=== PATIENT | male | born 1980 | race Caucasian/White ===

== ENCOUNTER 2016-03-03 11:30 | Emergency (ER) | payer OTHER ==
[~2016-03-03] VITALS: Ht 172.7 cm; Wt 97.5 kg
[~2016-03-03 11:30] MED LIST: CARISOPRODOL 3350 MG PO; CELEXA20 MG PO; CYCLOBENZAPRINE5 MG PO; FLEXERIL PO; HYDROCODONE-AP1 EAC6 PO; IBUPROFEN 600600 M1 PO; IBUPROFEN 800800 M1 PO; IBUPROFEN 800800 MG PO; IBUPROFEN200 M2 PO; MEDROL DOSPAK21 TAB PO; NOHOMEMEDICATIONS; NORCO 5-325 TA1 EACH PO; NORFLEX100 MG PO; PERCOCET 5-3251 EACH PO; PREDNISONE 10 M10 MG PO; PREDNISONE 20 M20 M1 PO; PREDNISONE 20 M20 MG PO; PREDNISONE50 MG PO; TORADOL 10 MG T10 MG PO; TRAMADOL 50 MG50 MG PO; ULTRAM 50MG TAB50 MG PO; VALIUM2 MG PO; VALIUM5 MG PO
[2016-03-03] MEDS ORDERED: FLEXERIL PO (12:57)
[2016-03-03] MEDS ORDERED: MOBIC15 MG PO (12:57)
[2016-03-03] MEDS ORDERED: MEDROLDOSEPACK PO (12:57)
[2016-03-03 13:04] VITALS: BP 139/67
== END 2016-03-03 13:06 | disposition home or self-care (01) ==
LOC: ER 11:30
DX: M54.12 Radiculopathy, cervical region (principal); M25.512 Pain in left shoulder; G89.29 Other chronic pain; F17.210 Nicotine dependence, cigarettes, uncomplicated

== ENCOUNTER 2016-09-10 08:19 | Emergency (ER) | payer OTHER ==
[~2016-09-10] VITALS: Ht 172.7 cm; Wt 97.5 kg
[~2016-09-10 08:19] MED LIST changes: +MEDROLDOSEPACK PO; +MOBIC15 MG PO
[2016-09-10] MEDS ORDERED: NORCO 5-325 TA1 EACH PO (08:31)
[2016-09-10] MEDS ORDERED: PREDNISONE 20 M20 MG PO (08:31)
[2016-09-10 09:29] VITALS: BP 108/79
== END 2016-09-10 08:31 | disposition home or self-care (01) ==
LOC: ER 08:19
DX: M54.12 Radiculopathy, cervical region (principal); F17.210 Nicotine dependence, cigarettes, uncomplicated; F10.99 Alcohol use, unspecified with unspecified alcohol-induced disorder

== ENCOUNTER 2016-10-21 12:17 | Emergency (ER) | payer OTHER ==
[~2016-10-21] VITALS: Ht 172.7 cm; Wt 97.5 kg
[2016-10-21] MEDS ORDERED: NORCO 5-325 TA1 EACH PO (14:12)
[2016-10-21] MEDS ORDERED: NAPROSYN500 MG PO (14:12)
[2016-10-21 14:20] VITALS: BP 118/55
== END 2016-10-21 14:42 | disposition home or self-care (01) ==
LOC: ER 12:17
DX: G89.29 Other chronic pain (principal); F17.210 Nicotine dependence, cigarettes, uncomplicated; F10.99 Alcohol use, unspecified with unspecified alcohol-induced disorder; W20.8XXA Other cause of strike by thrown, projected or falling object, initial encounter; Y93.89 Activity, other specified; Y92.89 Other specified places as the place of occurrence of the external cause; Y99.0 Civilian activity done for income or pay

== ENCOUNTER 2017-07-08 08:10 | Emergency (ER) | payer OTHER ==
[~2017-07-08] VITALS: Ht 172.7 cm; Wt 97.5 kg
[~2017-07-08 08:10] MED LIST changes: +NAPROSYN500 MG PO
[2017-07-08 09:21] LABS: CALCIUM 9.5 mg/dL (8.5-10.1); POTASSIUM 4.4 mmol/L (3.5-5.1)
[2017-07-08] MEDS ORDERED: NAPROSYN500 MG PO (10:07)
[2017-07-08] MEDS ORDERED: NORCO 5-325 TA1 EACH PO (10:07)
[2017-07-08] MEDS ORDERED: VALIUM5 MG PO (10:07)
[2017-07-08] MEDS ORDERED: SENNA-DOCUSATE1 EACH PO (10:07)
[2017-07-08 10:49] VITALS: BP 118/86
== END 2017-07-08 10:50 | disposition home or self-care (01) ==
LOC: ER 08:10
PROVIDERS: Emergency Medicine
DX: S56.811A Strain of other muscles, fascia and tendons at forearm level, right arm, initial encounter (principal); M54.2 Cervicalgia; G89.29 Other chronic pain; F17.210 Nicotine dependence, cigarettes, uncomplicated; X50.0XXA Overexertion from strenuous movement or load, initial encounter; Y93.89 Activity, other specified; Y92.89 Other specified places as the place of occurrence of the external cause; Y99.8 Other external cause status

== ENCOUNTER 2018-06-09 08:17 | Emergency (ER) | payer OTHER ==
[~2018-06-09] VITALS: Ht 172.7 cm; Wt 95.3 kg
[~2018-06-09 08:17] MED LIST changes: +SENNA-DOCUSATE1 EACH PO
[2018-06-09 09:00] LABS: ABSOLUTE NEUTROPHILS 3.4 thou/uL (1.4-8.2); BASOPHILS 0.6 % (0.0-2.0); EOSINOPHILS 4.8 % (0.0-3.0); HEMATOCRIT 48.2 % (42.0-52.0); HEMOGLOBIN 16.9 gm/dL (14.0-18.0); LYMPHOCYTES 32.4 % (24.0-44.0); MCH 29.1 pg (26.0-34.0); MCHC 35.1 g/dL (28.0-37.0); MCV 82.9 fL (80.0-100.0); MONOCYTES 10.1 % (1.0-8.0); PLATELET COUNT 280 thou/uL (150-400); POLYS 52.1 % (36.0-66.0); RBC 5.81 mil/uL (4.50-6.00); RDW 13.7 % (10.5-14.5); WBC 6.5 thou/uL (4.0-11.0)
[2018-06-09 09:17] LABS: ANION GAP 12 mmol/L (7-16); BUN 19 mg/dL (7-18); CALCIUM 9.7 mg/dL (8.5-10.1); CHLORIDE 98 mmol/L (98-107); CO2 25 mmol/L (21-32); CREATININE 0.9 mg/dL (0.7-1.3); GLUCOSE 112 mg/dL (74-106); POTASSIUM 4.1 mmol/L (3.5-5.1); SODIUM 135 mmol/L (136-145)
[2018-06-09 09:27] LABS: ALBUMIN 4.1 g/dL (3.4-5.0); SALICYLATE 2.9 mg/dL (2.8-20.0); SGOT 19 U/L (15-37); SGPT 38 U/L (30-65); TOTAL BILIRUBIN 0.3 mg/dL (<0.1-1.0); TOTAL PROTEIN 7.3 g/dL (6.4-8.2); TROPONIN-I <0.06 ng/mL (<0.06)
[2018-06-09 09:36] LABS: URINE BILIRUBIN NEGATIVE (Negative); URINE BLOOD NEGATIVE (Negative); URINE CLARITY CLEAR; URINE COLOR YELLOW; URINE GLUCOSE-RANDOM* NEGATIVE (Negative); URINE KETONES NEGATIVE (Negative); URINE LEUKOCYTES-REFLEX NEGATIVE (Negative); URINE NITRITE-REFLEX NEGATIVE (Negative); URINE PROTEIN (DIPSTICK) NEGATIVE (Negative); URINE UROBILINOGEN 0.2 E.U./dl (0.2-1.0)
[2018-06-09 09:45] LABS: AMP/METHAMP Negative (Negative); BARBITURATES Negative (Negative); BENZODIAZEPINES Negative (Negative); COCAINE Negative (Negative); METHADONE Negative (Negative); OPIATES Negative (Negative); PCP Negative (Negative)
[2018-06-09 11:28] VITALS: BP 144/96
--- NOTE | 2018-06-09 11:32 | EKG ---
[place] [address] [facility] [place] [address] ELECTROCARDIOGRAM REPORT Name: JERRY JIMENES Room [facility]: [id number] ������������������ Admission: 06/09/18 ������������������ Attend Phys: Discharge: ������������������ Date of : 78 Report #: [id number] ����������������������������������������������������������������� [id number] THIS REPORT FOR: //name// [facility] ED Test Date: 2018-06-09 Test Time: 08:22:33 Pat Name: JERRY JIMENES Department: Room: Gender: Space Operations: ZAG : 1980 Requested By: Davis Whitley Order Number: [id number] MD: Carlos Eduardo Herron Measurements Intervals [place] Rate: 117 P: 19 ME: 150 QRS: -22 QRSD: 83 T: 93 QT: 307 QTc: 429 Interpretive Statements Sinus tachycardia Probable left atrial enlargement Borderline left axis deviation Borderline T wave abnormalities Compared to ECG 12/21/2015 11:26:00 T-wave abnormality now present Electronically Signed On 06-09-2018 11:32:07 CDT by Carlos Eduardo Herron [email or web address] ��������������������������������������������� <ELECTRONICALLY SIGNED> ���������������������������������������� By: Carlos Eduardo Herron MD ��������������������������������������������� 06/09/18 1132 1 1 Carlos Eduardo Herron MD /JIHAN
== END 2018-06-09 10:30 | disposition left against medical advice (07) ==
LOC: ER 08:17
PROVIDERS: Emergency Medicine
DX: M79.601 Pain in right arm (principal); M79.602 Pain in left arm; R20.2 Paresthesia of skin; F17.210 Nicotine dependence, cigarettes, uncomplicated; M54.2 Cervicalgia; G89.29 Other chronic pain

== ENCOUNTER 2018-06-15 07:14 | Emergency (ER) | payer OTHER ==
[~2018-06-15] VITALS: Ht 172.7 cm; Wt 97.5 kg
[2018-06-15 07:15] VITALS: BP 134/87
[2018-06-15] MEDS ORDERED: IBUPROFEN 200200 M1 PO (07:27)
== END 2018-06-15 07:47 | disposition home or self-care (01) ==
LOC: ER 07:14
DX: R20.0 Anesthesia of skin (principal); F17.210 Nicotine dependence, cigarettes, uncomplicated; Z53.21 Procedure and treatment not carried out due to patient leaving prior to being seen by health care provider

== ENCOUNTER 2018-06-18 18:37 | Emergency (ER) | payer OTHER ==
[~2018-06-18] VITALS: Ht 172.7 cm; Wt 97.5 kg
[~2018-06-18 18:37] MED LIST changes: +IBUPROFEN 200200 M1 PO
[2018-06-18 19:52] LABS: ABSOLUTE NEUTROPHILS 6.3 thou/uL (1.4-8.2); BASOPHILS 1.7 % (0.0-2.0); EOSINOPHILS 1.8 % (0.0-3.0); HEMATOCRIT 46.4 % (42.0-52.0); HEMOGLOBIN 16.4 gm/dL (14.0-18.0); LYMPHOCYTES 31.5 % (24.0-44.0); MCH 29.7 pg (26.0-34.0); MCHC 35.4 g/dL (28.0-37.0); MCV 83.7 fL (80.0-100.0); MONOCYTES 8.8 % (1.0-8.0); PLATELET COUNT 336 thou/uL (150-400); POLYS 56.2 % (36.0-66.0); RBC 5.54 mil/uL (4.50-6.00); RDW 14.1 % (10.5-14.5); WBC 11.2 thou/uL (4.0-11.0)
[2018-06-18 20:02] LABS: ANION GAP 11 mmol/L (7-16); BUN 23 mg/dL (7-18); CHLORIDE 99 mmol/L (98-107); CO2 23 mmol/L (21-32); CREATININE 0.9 mg/dL (0.7-1.3); GLUCOSE 110 mg/dL (74-106); POTASSIUM 4.2 mmol/L (3.5-5.1); SODIUM 133 mmol/L (136-145)
[2018-06-18 20:04] LABS: APTT 28.7 Seconds (24.5-32.8); D-DIMER 0.19 ug/mLFEU (0.19-0.50); PROTIME 10.1 Seconds (9.3-11.4)
[2018-06-18 20:16] LABS: ALBUMIN 4.1 g/dL (3.4-5.0); SGOT 23 U/L (15-37); SGPT 30 U/L (30-65); TOTAL BILIRUBIN 0.3 mg/dL (<0.1-1.0); TROPONIN-I <0.06 ng/mL (<0.06)
[2018-06-18] MEDS ORDERED: PREDNISONE 20 M20 MG PO (21:31)
[2018-06-18] MEDS ORDERED: NAPROSYN500 MG PO (21:31)
[2018-06-18] MEDS ORDERED: NORFLEX100 MG PO (21:31)
[2018-06-18 21:58] VITALS: BP 128/101
--- NOTE | 2018-06-19 11:01 | EKG ---
[place] [address] [employer] [facility] [place] [address] ELECTROCARDIOGRAM REPORT Name: JERRY JIMENES Room #: DEP Jasmine#: [id number] ������������������ Admission: 06/18/18 ������������������ Attend Phys: Discharge: 06/18/18 ������������������ Date of : 78 Report #: [id number] ����������������������������������������������������������������� [id number] THIS REPORT FOR: //name// [facility] ED Test Date: 2018-06-18 Test Time: 19:07:40 Pat Name: JERRY JIMENES Department: Room: Gender: M [employer] Operator: [place] : 1980 Requested By: Ines Starks Order Number: [id number] MD: Tony Robles Measurements Intervals [place] Rate: 122 P: 27 ND: 154 QRS: -11 QRSD: 83 T: 59 QT: 303 QTc: 432 Interpretive Statements Sinus tachycardia Otherwise no significant abnormality Compared to ECG 06/09/2018 08:22:33 T-wave abnormality no longer present Electronically Signed On 06-19-2018 11:01:45 CDT by Tony Robles [email or web address] ��������������������������������������������� <ELECTRONICALLY SIGNED> ���������������������������������������� By: Tony Robles MD, [facility] ��������������������������������������������� 06/19/18 1101 1906 06 Tony Robles MD, FACC /EPI
== END 2018-06-18 21:59 | disposition home or self-care (01) ==
LOC: ER 18:37
PROVIDERS: Emergency Medicine; Nurse Practitioner Family
DX: M47.22 Other spondylosis with radiculopathy, cervical region (principal); R20.2 Paresthesia of skin; G89.29 Other chronic pain

== ENCOUNTER 2018-11-28 15:13 | Emergency (ER) | payer OTHER ==
[~2018-11-28] VITALS: Ht 172.7 cm; Wt 99.8 kg
[2018-11-28] MEDS ORDERED: PREDNISONE 20 M20 MG PO (17:24)
[2018-11-28] MEDS ORDERED: NORCO 5-325 TA1 EAC1 PO (17:24)
[2018-11-28 17:25] VITALS: BP 157/107
== END 2018-11-28 17:25 | disposition home or self-care (01) ==
LOC: ER 15:13
DX: M54.42 Lumbago with sciatica, left side (principal); G89.29 Other chronic pain; M54.2 Cervicalgia; F17.210 Nicotine dependence, cigarettes, uncomplicated

== ENCOUNTER 2019-07-25 18:09 | Emergency (ER) | payer OTHER ==
[~2019-07-25] VITALS: Ht 172.7 cm; Wt 99.8 kg
[~2019-07-25 18:09] MED LIST changes: +NORCO 5-325 TA1 EAC1 PO
[2019-07-25] MEDS ORDERED: PERCOCET 5-3251 EACH PO (19:15)
[2019-07-25] MEDS ORDERED: PREDNISONE 20 M20 MG PO (19:15)
[2019-07-25 19:23] VITALS: BP 142/80
== END 2019-07-25 19:26 ==
LOC: ER 18:09
DX: M54.42 Lumbago with sciatica, left side (principal); F17.210 Nicotine dependence, cigarettes, uncomplicated; Z79.899 Other long term (current) drug therapy

== ENCOUNTER 2020-04-13 11:05 | Emergency (ER) | payer OTHER ==
[~2020-04-13] VITALS: Ht 172.7 cm; Wt 99.8 kg
[2020-04-13 13:11] VITALS: BP 138/91
[2020-04-13] MEDS ORDERED: VALIUM10 MG PO (13:18)
[2020-04-13] MEDS ORDERED: NAPROSYN500 MG PO (13:18)
[2020-04-13] MEDS ORDERED: MEDROL DOSPAK21 TA1 PO (13:18)
[2020-04-13] MEDS ORDERED: NORCO5 PO (13:18)
== END 2020-04-13 13:13 | disposition home or self-care (01) ==
LOC: ER 11:05
DX: M54.32 Sciatica, left side (principal); M79.605 Pain in left leg; F17.210 Nicotine dependence, cigarettes, uncomplicated; Z79.1 Long term (current) use of non-steroidal anti-inflammatories (NSAID)